=== PATIENT | male | born 1995 | race Caucasian/White ===

== ENCOUNTER 2018-03-18 23:46 | Emergency (ER) | payer OTHER, MEDICAID ==
[2018-03-18 23:59] VITALS: BP 97/82; PULSE 92; O2SAT 98
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
[2018-03-19] MEDS ORDERED: TORAdol 30 mg Injection IM ONE (00:19)
[2018-03-19] MEDS ORDERED: Augmentin 875-125 Tablet PO ONE (00:19)
[2018-03-19] MEDS ORDERED: Augmentin 875-125 Tablet ONE (00:22)
[2018-03-19] MEDS ORDERED: TORAdol 30 mg Injection ONE (00:22)
== END 2018-03-19 00:44 | disposition home or self-care (01) ==
LOC: ED 23:46
PROC: 0HQAXZZ Repair Inguinal Skin, External Approach (ICD-10-PCS; principal; 2018-03-19)
DX: S31.35XA Open bite of scrotum and testes, initial encounter (principal); W54.0XXA Bitten by dog, initial encounter; Y92.149 Unspecified place in prison as the place of occurrence of the external cause
CPT/HCPCS: 12001; 96372; 99284; J1885; A9270-GY

== ENCOUNTER 2018-03-19 22:36 | Emergency (ER) | payer OTHER, MEDICAID ==
[2018-03-19 22:48] VITALS: BP 136/83; PULSE 82; O2SAT 97
[2018-03-19] MEDS ORDERED: Bactroban OINTMENT TP ONE (22:56)
[2018-03-19] MEDS ORDERED: BACIGUENT PACKET ONE (22:59)
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
== END 2018-03-19 23:06 | disposition home or self-care (01) ==
LOC: ED 22:36
DX: S30.8 Other superficial injuries of abdomen, lower back, pelvis and external genitals (principal)
CPT/HCPCS: 99283; A9270-GY

== ENCOUNTER 2018-05-26 16:53 | Emergency (ER) | payer SELFPAY ==
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
[2018-05-26] MEDS ORDERED: TORAdol 30 mg Injection IM ONE (18:56)
[2018-05-26] MEDS ORDERED: TORAdol 30 mg Injection ONE (18:59)
[2018-05-26 19:07] VITALS: BP 133/76; PULSE 64; O2SAT 98
== END 2018-05-26 19:07 | disposition home or self-care (01) ==
LOC: ED 16:53
DX: J02.9 Acute pharyngitis, unspecified (principal)
CPT/HCPCS: 36415; 86308; 87651; 96372; 99284; J1885

== ENCOUNTER 2018-10-19 04:47 | Emergency (ER) | payer SELFPAY ==
[2018-10-19] MEDS ORDERED: Zemuron 100 MG/10 ML IJ ONE (04:48)
[2018-10-19] MEDS ORDERED: Propofol 1000 mg/100 ml Bottle 100 ML IV ONE (04:48)
[2018-10-19] MEDS ORDERED: DIPRIVAN 200 MG/20 ML IV ONE (04:48)
[2018-10-19] MEDS ORDERED: Zofran 4 MG/2 ML VIAL IV ONE (05:13)
[2018-10-19] MEDS ORDERED: Sodium Chloride 0.9% 1000 ML 1,000 ML IV STA ×5 (05:13→09:36)
[2018-10-19 05:38] LABS: BASOPHIL % 0.4 % (0.0-0.4); Basophil (Absolute #) 0.04 (0-0.4); Eosinophil % 1.5 % (0.00-5.0); Eosinophil (Absolute #) 0.15 (0-0.5); Granulocyte Absolute (ANC) 6.28 (1.4-6.9); Granulocytes % 64.8 % (36.0-66.0); Hemoglobin 15.6 gm/dl (12.5-18.0); Lymphocyte (Absolute #) 2.26 (1.0-4.6); Lymphocytes % 23.3 % (24.0-44.0); Mean Cell Volume 84.3 fl (78-100); Mean Corpuscular Hemoglobin 29.2 pg (26-32); Mean Corpuscular Hgb Concent. 34.7 g/dl (32-36); Mean Platelet Volume 9.3 fl (6-9.5); Monocyte (Absolute #) 0.97 (0.0-1.3); Platelet Count 319 K/mm3 (150-450); Red Blood Count 5.34 M/mm3 (4.1-5.6); Red Cell Distribution Width 13.2 % (11.5-14.0); White Blood Count 9.7 K/mm3 (4.0-10.5)
[2018-10-19 05:44] LABS: Appearance CLEAR (CLEAR); Bacteria RARE /HPF (NEGATIVE); Bilirubin NEGATIVE (NEGATIVE); Blood NEGATIVE Ery/ul (0-5); Glucose NEGATIVE (NEGATIVE); Ketones NEGATIVE (NEGATIVE); Leukocyte Esterase NEGATIVE (NEGATIVE); Mucus SLIGHT /HPF (NEGATIVE); Nitrite NEGATIVE (NEGATIVE); Protein,Urine Dip NEGATIVE (Negative); Specific Gravity 1.013 (1.005-1.025); Urobilinogen NEGATIVE mg/dL (0-1); WBC 0-2 /HPF (0-5)
[2018-10-19 05:53] LABS: ALBUMIN 5.5 g/dL (3.5-5.0); ALKALINE PHOSPHATASE 61 U/L (38-126); ANION GAP 16.6 MEQ/L (5-15); BLOOD UREA NITROGEN 11 mg/dL (9-20); CHLORIDE 97 mmol/L (98-107); Calcium 10.4 mg/dL (8.4-10.2); Carbon Dioxide 28 mmol/L (22-30); Creatinine 1 1.36 mg/dL (0.66-1.25); Glucose 123 mg/dL (74-106); SGOT/AST 27 U/L (17-59); SGPT/ALT 23 U/L (0-50); SODIUM 138 mmol/L (137-145); Total Protein 9.2 g/dL (6.3-8.2)
[2018-10-19 06:02] LABS: ETHYL ALCOHOL < 10 mg/dL (0-10)
[2018-10-19 06:03] LABS: Barbiturate,Urine NEGATIVE (NEGATIVE); Benzodiazepine,Urine NEGATIVE (NEGATIVE); Cocaine,Urine NEGATIVE (NEGATIVE); Methadone,Urine NEGATIVE (NEGATIVE); Opiate,Urine NEGATIVE (NEGATIVE); PCP,Urine NEGATIVE (NEGATIVE); THC,Urine POSITIVE (NEGATIVE)
[2018-10-19] MEDS ORDERED: Sodium Chloride 0.9% 1000 ML 1,000 ML ONE ×2 (06:08→08:41)
[2018-10-19] MEDS ORDERED: Ativan 2 MG/1 ML VIAL ONE ×4 (06:13→07:12)
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
[2018-10-19] MEDS ORDERED: Ativan 2 MG/1 ML VIAL IV ONE ×4 (06:28→07:14)
[2018-10-19 06:32] LABS: Amphetamine,Urine POSITIVE (NEGATIVE)
[2018-10-19 06:45] LABS: ACETAMINOPHEN < 10 ug/ml (10-30); SALICYLATE < 1.0 mg/dL (2-20)
[2018-10-19 08:33] VITALS: PULSE 119; O2SAT 100
[2018-10-19 08:47] LABS: A-aADO2 414; ABG HEMOGLOBIN 13.2; ABG POTASSIUM 4.4 (3.5-5.1); ABG SITE LEFT RADIAL; ALLEN TEST OK? YES; ARTERIAL BLD GAS O2 SATURATION 99.7 % (95-100); ARTERIAL BLD GAS TIDAL VOLUME 550 cc; ARTERIAL BLOOD GAS BASE EXCESS -3.6 (-2.0-2.0); ARTERIAL BLOOD GAS FIO2 100 %; ARTERIAL BLOOD GAS PCO2 52 mmHg (35-45); ARTERIAL BLOOD GAS PEEP 5 cmH2O; ARTERIAL BLOOD GAS PO2 234 mmHg (75-100); ARTERIAL BLOOD GAS pH 7.27 (7.35-7.45); CARBOXYHEMOGLOBIN 2.9 % THgb (0.0-6.9); HCO3- 23.9 (22-28); HGB O2 SAT 95.2 g/dF (94-100); Methhemoglobin 1.5 % (1.4-1.5); paO2 pAO1 0.36
[2018-10-19 08:49] LABS: Lactic Acid 3.2 (0.4-2.0)
--- NOTE | 2018-10-19 09:20 | XRAY ---
Indication: Intubation. Comparison: October 21, 2012. Portable chest demonstrates new endotracheal tube tip 4.5 cm above the marta. Remaining heart, lungs, and bony thorax normal.
--- NOTE | 2018-10-19 09:22 | XRAY ---
Indication: Endotracheal tube manipulation. Comparison: Taken earlier in the day. Portable chest again demonstrates endotracheal tube tip now 4 cm above the marta. No new/acute cardiopulmonary abnormalities.
[2018-10-19 09:36] VITALS: BP 98/58
== END 2018-10-19 09:10 | disposition short-term general hospital (02) ==
LOC: ED 04:47
DX: T43.625A Adverse effect of amphetamines, initial encounter (principal); T40.7X5A Adverse effect of cannabis (derivatives), initial encounter; F41.9 Anxiety disorder, unspecified; R44.3 Hallucinations, unspecified
CPT/HCPCS: 31500; 51702; 80053; 80307; 81001; 82375; 82550; 82803; 83605; 85025; 93005; 93041; 96360; 96361; 96374; 96375; 96376; 99291; 99292; G0481; 36000; 36415; 36600; 71045; 94002; 99285; J2060; J2405; J2704; G0480

== ENCOUNTER 2019-06-26 23:37 | Emergency (ER) | payer MEDICAID ==
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
[2019-06-27 02:35] VITALS: BP 128/89; PULSE 98; O2SAT 99
== END 2019-06-27 02:33 | disposition home or self-care (01) ==
LOC: ED 23:37
DX: S60.445D External constriction of left ring finger, subsequent encounter (principal)
CPT/HCPCS: 99283

== ENCOUNTER 2020-01-28 15:22 | Emergency (ER) | payer MEDICAID, OTHER ==
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
[2020-01-28] MEDS ORDERED: Pepcid 20 MG VIAL IV ONE ×2 (15:43→16:05)
[2020-01-28] MEDS ORDERED: Zofran 4 MG/2 ML VIAL IV ONE (15:43)
[2020-01-28] MEDS ORDERED: Sodium Chloride 0.9% 1000 ML 1,000 ML IV STA ×2 (15:43→17:00)
[2020-01-28] MEDS ORDERED: Sodium Chloride 0.9% 1000 ML 1,000 ML ONE ×2 (16:05→17:03)
[2020-01-28] MEDS ORDERED: Zofran 4 MG/2 ML VIAL ONE (16:05)
[2020-01-28 16:18] LABS: Absolute Neutrophil Ct (ANC) 14.91 (1.4-6.9); BASOPHIL % 0.2 % (0.0-0.4); Basophil (Absolute #) 0.04 (0-0.4); Eosinophil (Absolute #) 0.17 (0-0.5); Hematocrit 52.5 % (42-50); Hemoglobin 17.6 gm/dl (12.5-18.0); Lymphocyte (Absolute #) 1.31 (1.0-4.6); Lymphocytes % 7.4 % (24.0-44.0); Mean Cell Volume 86.6 fl (78-100); Mean Corpuscular Hgb Concent. 33.5 g/dl (32-36); Mean Platelet Volume 8.8 fl (7.5-11.0); Monocytes % 7.3 % (0.0-12.0); Neutrophil % 84.1 % (36.0-66.0); Platelet Count 285 K/mm3 (150-450); Red Blood Count 6.06 M/mm3 (4.1-5.6); Red Cell Distribution Width 14.3 % (11.5-14.0); White Blood Count 17.7 K/mm3 (4.0-10.5)
--- NOTE | 2020-01-28 16:23 | XRAY ---
Exam: AP upright portable chest film from 01/28/2020. Comparison: AP supine portable chest film from 10/19/2018. Indication: 24-year-old male with fever, nausea. Findings: The film was obtained in a mildly lordotic projection. The patient is rotated slightly toward the right. There is adequate inflation of the lungs. The heart size and contour are normal. The yasmeen and mediastinal structures appear unremarkable. No infiltrates, vascular congestion, pneumothorax, or pleural fluid is seen. An elliptical calcification is seen just inferior to the lateral end of the right clavicle representing no change from 10/19/2018. No acute osseous process is seen. Impression: 1. No infiltrates to suggest pneumonia or other acute cardiopulmonary disease is seen.
[2020-01-28 16:27] LABS: Appearance CLEAR (CLEAR); Bilirubin NEGATIVE (NEGATIVE); Blood SMALL Ery/ul (0-5); Glucose NEGATIVE (NEGATIVE); Ketones NEGATIVE (NEGATIVE); Leukocyte Esterase NEGATIVE (NEGATIVE); Nitrite NEGATIVE (NEGATIVE); Protein,Urine Dip NEGATIVE (Negative); Specific Gravity 1.013 (1.005-1.025); Urobilinogen NEGATIVE mg/dL (0-1)
[2020-01-28 16:28] LABS: BLOOD UREA NITROGEN 13 mg/dL (9-20); Creatinine 1 0.76 mg/dL (0.66-1.25); Glucose 99 mg/dL (74-106); Potassium 5.2 mmol/L (3.5-5.1); SODIUM 139 mmol/L (137-145)
[2020-01-28 16:29] LABS: ALKALINE PHOSPHATASE 72 U/L (38-126); AMYLASE 122 U/L (30-110); CHLORIDE 102 mmol/L (98-107); Calcium 9.9 mg/dL (8.4-10.2); Carbon Dioxide 30 mmol/L (22-30); LIPASE 115 U/L (23-300); SGOT/AST 31 U/L (17-59); SGPT/ALT 27 U/L (0-50); Total Protein 8.8 g/dL (6.3-8.2)
[2020-01-28 16:30] LABS: ANION GAP 12.2 MEQ/L (5-15)
[2020-01-28 17:08] VITALS: PULSE 72
[2020-01-28 17:17] LABS: INFLUENZA A NEGATIVE (NEGATIVE); INFLUENZA B NEGATIVE (NEGATIVE); RESPIRATORY SYNCTIAL VIRUS NEGATIVE (Negative)
[2020-01-28 17:48] VITALS: BP 133/94; O2SAT 98
[2020-01-28 18:54] LABS: Amphetamine,Urine SEE SEPARATE REPORT (NEGATIVE); Barbiturate,Urine SEE SEPARATE REPORT (NEGATIVE); Benzodiazepine,Urine SEE SEPARATE REPORT (NEGATIVE); Cocaine,Urine SEE SEPARATE REPORT (NEGATIVE); Methadone,Urine SEE SEPARATE REPORT (NEGATIVE); Opiate,Urine SEE SEPARATE REPORT (NEGATIVE); PCP,Urine SEE SEPARATE REPORT (NEGATIVE); THC,Urine SEE SEPARATE REPORT (NEGATIVE)
== END 2020-01-28 17:57 | disposition home or self-care (01) ==
LOC: ED 15:22
DX: B27.90 Infectious mononucleosis, unspecified without complication (principal); R10.9 Unspecified abdominal pain; R11.2 Nausea with vomiting, unspecified; R19.7 Diarrhea, unspecified
CPT/HCPCS: 36000; 36415; 71045; 80053; 80307; 81001; 82150; 83605; 83690; 85025; 86308; 87040; 87631; 87651; 96360; 96361; 96374; 96375; 99284; J2405

== ENCOUNTER 2020-02-23 10:53 | Emergency (ER) | payer OTHER ==
[2020-02-23] MEDS ORDERED: TORAdol 30 mg Injection IM ONE (10:54)
[2020-02-23 14:41] LABS: Appearance SLIGHTLY CLOUDY (CLEAR); Bilirubin NEGATIVE (NEGATIVE); Blood NEGATIVE Ery/ul (0-5); Glucose NEGATIVE (NEGATIVE); Ketones NEGATIVE (NEGATIVE); Leukocyte Esterase NEGATIVE (NEGATIVE); Nitrite NEGATIVE (NEGATIVE); Protein,Urine Dip NEGATIVE (Negative); Urobilinogen NEGATIVE mg/dL (0-1); WBC 0-2 /HPF (0-5)
[2020-02-23 14:43] LABS: Absolute Neutrophil Ct (ANC) 7.27 (1.4-6.9); BASOPHIL % 0.1 % (0.0-0.4); Eosinophil % 1.1 % (0.00-5.0); Hematocrit 47.1 % (42-50); Hemoglobin 16.1 gm/dl (12.5-18.0); Lymphocyte (Absolute #) 1.08 (1.0-4.6); Lymphocytes % 11.9 % (24.0-44.0); Mean Cell Volume 86.3 fl (78-100); Mean Corpuscular Hemoglobin 29.5 pg (26-32); Mean Corpuscular Hgb Concent. 34.2 g/dl (32-36); Mean Platelet Volume 8.7 fl (7.5-11.0); Monocytes % 6.6 % (0.0-12.0); Neutrophil % 80.3 % (36.0-66.0); Platelet Count 242 K/mm3 (150-450); Red Blood Count 5.46 M/mm3 (4.1-5.6); White Blood Count 9.1 K/mm3 (4.0-10.5)
[2020-02-23 14:44] LABS: BLOOD UREA NITROGEN 17 mg/dL (9-20); Basophil (Absolute #) 0.01 (0-0.4); CHLORIDE 105 mmol/L (98-107); Calcium 9.6 mg/dL (8.4-10.2); Carbon Dioxide 29 mmol/L (22-30); Creatinine 1 0.82 mg/dL (0.66-1.25); Glucose 114 mg/dL (74-106); Potassium 4.7 mmol/L (3.5-5.1); SODIUM 140 mmol/L (137-145)
[2020-02-23 14:45] LABS: ALBUMIN 4.3 g/dL (3.5-5.0); ALKALINE PHOSPHATASE 52 U/L (38-126); LIPASE 49 U/L (23-300); MAGNESIUM 2.2 mg/dL (1.6-2.3); SGOT/AST 27 U/L (17-59); SGPT/ALT 25 U/L (0-50); TROPONIN < 0.012 ng/mL (0.000-0.034); Total Protein 7.3 g/dL (6.3-8.2)
[2020-02-23 14:46] LABS: ANION GAP 3.7 MEQ/L (5-15)
--- NOTE | 2020-02-23 18:36 | XRAY ---
Indication: Chest pain. Nausea and vomiting. Multiple contiguous axial images obtained through the abdomen and pelvis using 80 cc Isovue 370 contrast only. Comparison: CT pelvis September 28, 2005. Lung bases are clear. Heart is not enlarged. Stomach and small bowel loops are mildly fluid distended with mild bowel wall thickening and fluid leveling, ileus versus gastroenteritis. Colon is also mild fluid distended throughout favoring diarrhea. Mild rectal fecal debris. Normal appendix. No free fluid/air. Gallbladder partially contracted without gallstones. Spleen is borderline enlarged measuring 12.5 cm. Remaining liver, pancreas, spleen, adrenal glands, kidneys, ureters, bladder, and aorta appear unremarkable. No pathologic retroperitoneal lymphadenopathy. Osseous structures intact. No ventral or inguinal hernias. Impression: Fluid distended stomach and small bowel loops with wall thickening/enhancement and fluid leveling, ileus versus gastroenteritis. Incidental colonic diarrhea and borderline splenomegaly.
== END 2020-02-23 15:40 | disposition home or self-care (01) ==
LOC: ED 10:53
DX: R10.9 Unspecified abdominal pain (principal)
CPT/HCPCS: 36415; 74177; 80053; 81001; 83690; 83735; 84484; 85025; 96374; 99283; J1885

== ENCOUNTER 2020-10-21 21:19 | Emergency (ER) | payer OTHER ==
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
[2020-10-21 22:24] LABS: Barbiturate,Urine NEGATIVE (NEGATIVE); Benzodiazepine,Urine NEGATIVE (NEGATIVE); Cocaine,Urine NEGATIVE (NEGATIVE); Methadone,Urine NEGATIVE (NEGATIVE); Opiate,Urine NEGATIVE (NEGATIVE); PCP,Urine NEGATIVE (NEGATIVE); THC,Urine POSITIVE (NEGATIVE)
[2020-10-21 23:13] VITALS: BP 123/61; PULSE 68; O2SAT 99
[2020-10-21 23:46] LABS: Amphetamine,Urine POSITIVE (NEGATIVE)
== END 2020-10-21 23:14 | disposition home or self-care (01) ==
LOC: ED 21:19
DX: Z02.89 Encounter for other administrative examinations (principal); F19.980 Other psychoactive substance use, unspecified with psychoactive substance-induced anxiety disorder; I10 Essential (primary) hypertension; F17.200 Nicotine dependence, unspecified, uncomplicated
CPT/HCPCS: 36415; 80307; 99283; G0480

== ENCOUNTER 2023-09-24 | Emergency (ER) | payer SELFPAY ==
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
[2023-09-24 00:08] VITALS: RESP 20; TEMP 97.9
[2023-09-24 01:01] LABS: INFLUENZA A NEGATIVE (NEGATIVE); INFLUENZA B NEGATIVE (NEGATIVE); RESPIRATORY SYNCTIAL VIRUS NEGATIVE (NEGATIVE); SARS-CoV-2 Xpert Express NEGATIVE (NEGATIVE)
[2023-09-24 01:03] VITALS: O2SAT 98
[2023-09-24 01:28] VITALS: BP 116/68; PULSE 68
== END 2023-09-24 01:28 | disposition home or self-care (01) ==
LOC: ED
DX: J02.9 Acute pharyngitis, unspecified (principal); Z72.0 Tobacco use
CPT/HCPCS: 0241U; 87651; 99283